=== PATIENT | female | born 1980 | race Two or more races ===

== ENCOUNTER 2024-12-08 09:41 | Emergency (ER) | payer BC, OTHER ==
[2024-12-08 10:29] LABS: BASOPHILS ABSOLUTE AUTO 0.02 K/uL (0.00-0.20); BASOPHILS PERCENT AUTO 0.3 % (0.0-1.0); EOSINOPHILS ABSOLUTE AUTO 0.06 K/uL (0.00-0.45); EOSINOPHILS PERCENT AUTO 0.8 % (0.0-6.0); HEMATOCRIT 37.8 % (37.0-47.0); HEMOGLOBIN 13.3 g/dL (12.0-16.0); IMMATURE GRAN ABSOLUTE AUTO 0.01 K/uL (0.00-0.05); IMMATURE GRAN PERCENT AUTO 0.1 % (0.0-0.4); LYMPHOCYTES ABSOLUTE AUTO 1.62 K/uL (1.00-4.80); LYMPHOCYTES PERCENT AUTO 21.1 % (24.0-44.0); MEAN CORPUSCULAR HEMOGLOBIN 31.7 pg (28.0-32.0); MEAN CORPUSCULAR HGB CONC 35.2 g/dL (32.0-36.0); MEAN PLATELET VOLUME 8.8 fL (9.4-12.3); MONOCYTES ABSOLUTE AUTO 0.42 K/uL (0.00-0.80); MONOCYTES PERCENT AUTO 5.5 % (0.0-8.0); NEUTROPHILS ABSOLUTE AUTO 5.55 K/uL (1.80-7.70); NEUTROPHILS PERCENT AUTO 72.2 % (41.0-71.0); PLATELET COUNT,PLT 326 K/uL (150-400); WHITE BLOOD CELL COUNT,WBC 7.68 K/uL (3.9-11.3)
== END 2024-12-08 11:40 | disposition home or self-care (01) ==
LOC: MW.ED 09:41
DX: K64.4 Residual hemorrhoidal skin tags (principal); Z79.890 Hormone replacement therapy; Z79.899 Other long term (current) drug therapy; Z90.49 Acquired absence of other specified parts of digestive tract
CPT/HCPCS: 36415; 85025; 99283

== ENCOUNTER 2025-02-20 08:39 | Day surgery (SDC) | payer BC ==
[2025-02-20] MEDS: Lactated Ringers 1,000 ML IV SCH (09:15)
[2025-02-20] MEDS ORDERED: propofoL 500 MG/50 ML 50 ML ONE (09:43)
[2025-02-20] MEDS ORDERED: Lidocaine 2% 5 ML SDV ONE (09:43)
== END 2025-02-20 12:05 | disposition home or self-care (01) ==
LOC: MW.SDS 08:39 → EEVIPCON 11:00 → MW.SDS 12:05
PROVIDERS: ATTEND Surgery
DX: K63.5 Polyp of colon (principal); K62.1 Rectal polyp; K64.4 Residual hemorrhoidal skin tags; K64.8 Other hemorrhoids; K92.1 Melena; E03.9 Hypothyroidism, unspecified; Z79.890 Hormone replacement therapy; Z79.899 Other long term (current) drug therapy
CPT/HCPCS: 45380; 81025; J2003; J2704; J7120; 00811